=== PATIENT | female | born 1980 | race Caucasian/White ===

== ENCOUNTER 2020-03-18 09:46 | Day surgery (SDC) | payer OTHER ==
[~2020-03-18 09:46] MED LIST: Lactated Ringers 1,000 ML IV SCH
[2020-03-18] MEDS ORDERED: Succinylcholine/Sod PF 100 MG/5 ML SYRINGE IV ONE (10:09)
[2020-03-18] MEDS ORDERED: Ketorolac 30 MG/ML SDV ONE (10:09)
[2020-03-18] MEDS ORDERED: Rocuronium 100 MG/10 ML Syringe ONE (10:09)
[2020-03-18] MEDS ORDERED: fentaNYL 100 MCG/2 ML SDV ONE (10:10)
[2020-03-18] MEDS ORDERED: Midazolam 1 MG/ML 2 ML SDV ONE (10:10)
[2020-03-18] MEDS ORDERED: Propofol 200 MG/20 ML SDV ONE ×2 (10:10→11:33)
--- NOTE | 2020-03-18 10:16 | PCM.PREANE ---
Preanesthetic Assessment - Anesthesia/Transfusion/Family Hx Anesthesia History: Prior Anesthesia Without Reaction Other Type of Anesthesia Reaction Comment: "mother has allergy to novacaine" Family History of Anesthesia Reaction: No Transfusion History: No Prior Transfusion(s) Intubation History: Unknown - Review of Systems General: No Symptoms Pulmonary: No Symptoms Cardiovascular: No Symptoms Gastrointestinal: No Symptoms Neurological: No Symptoms Other: Reports: None - Physical Assessment NPO Status Date: 03/17/20 Height: 5 ft 5.75 in Weight: 94.801 kg ASA Class: 2 Mental Status: Alert & Oriented x3 Airway Class: Mallampati = 2 Dentition: Reports: Normal Dentition ROM/Head Extension: Full Lungs: Clear to Auscultation, Normal Respiratory Effort Cardiovascular: Regular Rate, Regular Rhythm - Lab Values: Laboratory Last Values Hgb 14.4 g/dL (12.0-16.0) 03/17/20 09:08 Hct 44.0 % (36.0-46.0) 03/17/20 09:08 HCG, Qual NEGATIVE (NEG) 03/17/20 09:08 - Allergies Allergies/Adverse Reactions: Allergies Allergy/AdvReac Type Severity Reaction Status Date / Time No Known Allergies Allergy Verified 03/12/20 10:31 - Blood Blood Available: No - Anesthesia Plan Pre-Op Medication Ordered: None - Acknowledgements Anesthesia Type Planned: General Anesthesia Pt an Appropriate Candidate for the Planned Anesthesia: Yes Pt/Guardian Understands and Agrees with Anesthesia Plan: Yes PreAnesthesia Questionnaire - Past Health History Medical/Surgical History: Denies Medical/Surgical History HEENT History: Reports: None Cardiovascular History: Reports: Hypertension Respiratory History: Reports: Sleep Apnea Other Respiratory History: uses CPAP Gastrointestinal History: Reports: Diverticulosis, GERD, Other (See Below) Other Gastrointestinal History: diverticulitis Genitourinary History: Reports: None BODY WORKER History: Reports: , Other (See Below) Other OB/BYN History: genital herpes Musculoskeletal History: Reports: Back Pain, Chronic Neurological History: Reports: Concussion Psychiatric History: Reports: ADHD, Anxiety, Depression Endocrine/Metabolic History: Reports: Diabetes, Gestational, Obesity/BMI 30+ Hematologic History: Reports: None Immunologic History: Reports: None Oncologic (Cancer) History: Reports: None Dermatologic History: Reports: None - Infectious Disease History Infectious Disease History: Reports: Chicken Pox - Past Surgical History Head Surgeries/Procedures: Reports: None HEENT Surgical History: Reports: Tonsillectomy Cardiovascular Surgical History: Reports: None Respiratory Surgical History: Reports: None GI Surgical History: Reports: Colonoscopy Female Surgical History: Reports: Cervical Cryotherapy, D&C, Other (See Below) Other Female Surgeries/Procedures: cerclage with x2, ESSURE Endocrine Surgical History: Reports: None Neurological Surgical History: Reports: None Other Musculoskeletal Surgeries/Procedures:: broken finger Oncologic Surgical History: Reports: None Dermatological Surgical History: Reports: None - SUBSTANCE USE Smoking Status *Q: Light Tobacco Smoker Tobacco Use Within Last Twelve Months: Cigarettes - HOME MEDS Home Medications: Home Meds Lisdexamfetamine Dimesylate [Vyvanse] 20 mg PO DAILY 04/16/18 [History] Metoprolol Tartrate 25 mg PO DAILY 06/23/18 [History] valACYclovir HCl [Valtrex] 500 mg PO DAILY 06/23/18 [History] Omeprazole/Sodium Bicarbonate [Zegerid OTC 20-1,100 MG] 1 tab PO ASDIRECTED PRN 03/12/20 [History] Vortioxetine Hydrobromide [Trintellix] 20 mg PO DAILY 03/12/20 [History] - CURRENT (IN HOUSE) MEDS Current Meds: Current Medications Lactated Ringer's (Ringers, Lactated) 1,000 mls @ 125 mls/hr IV ASDIRECTED BOBBY Discontinued Medications Fentanyl (Sublimaze) Confirm Administered Dose 100 mcg .ROUTE .STK-MED ONE Stop: 03/18/20 10:11 Ketorolac Tromethamine (Toradol) Confirm Administered Dose 30 mg .ROUTE .STK-MED ONE Stop: 03/18/20 10:10 Midazolam HCl (Versed 1 Mg/Ml) Confirm Administered Dose 2 mg .ROUTE .STK-MED ONE Stop: 03/18/20 10:11 Propofol (Diprivan 20 Ml) Confirm Administered Dose 200 mg .ROUTE .STK-MED ONE Stop: 03/18/20 10:11 Rocuronium [place] (Zemuron) Confirm Administered Dose 100 mg .ROUTE .STK-MED ONE Stop: 03/18/20 10:10
[2020-03-18] MEDS ORDERED: Lidocaine 1% with EPINEPHrine 1:100,000 20 ML MDV ONE (11:34)
--- NOTE | 2020-03-18 11:54 | PCM.OPNOTE ---
- General Post-Op/Procedure Note Date of Surgery/Procedure: 03/18/20 Operative Procedure(s): LEEP Findings: scarring peripherally on cervix from prior cerclage, entire transition zone identified with large area of acetowhite epithelium from 2 o'clock to 7 o'clock Pre Op Diagnosis: Moderate cervical dysplasia Post-Op Diagnosis: Same Anesthesia Technique: MAC, Other (see below) (cervical block) Primary Surgeon: Berna Caldwell Secondary Surgeon: Vickey Muir Anesthesia Provider: Stephen Willis Human Resource Professional: Madelyn Stapleton Pathology: ectocervical biopsy labelled at 12 o'clock. Endocervical biopsy labelled at 12 o'clock. Endocervical curettings. Fluid Replacement, Intraop: 1,000 EBL in mLs: 10 Complications: None Known Condition: Good
--- NOTE | 2020-03-18 12:25 | PCM.POSTAN ---
POST ANESTHESIA ASSESSMENT - MENTAL STATUS Mental Status: Alert, Oriented - VITAL SIGNS Vital Signs: Last Vital Signs Temp 96.8 F L 03/18/20 11:50 Pulse 71 03/18/20 12:11 Resp 19 03/18/20 12:11 BP 122/79 03/18/20 12:11 Pulse Ox 97 03/18/20 12:11 - RESPIRATORY Respiratory Status: Respiratory Rate WNL, Airway Patent, O2 Saturation Stable - CARDIOVASCULAR CV Status: Pulse Rate WNL, Blood Pressure Stable - GASTROINTESTINAL GI Status: No Symptoms - POST OP HYDRATION Hydration Status: Adequate & Stable
--- NOTE | 2020-03-18 12:26 | PCM48HPAN ---
Post Anesthesia Note - EVALUATION WITHIN 48HRS OF ANESTHETIC Vital Signs in Normal Range: Yes Patient Participated in Evaluation: Yes Respiratory Function Stable: Yes Airway Patent: Yes Cardiovascular Function Stable: Yes Hydration Status Stable: Yes Pain Control Satisfactory: Yes Nausea and Vomiting Control Satisfactory: Yes Mental Status Recovered: Yes Vital Signs: Last Vital Signs Temp 96.8 F L 03/18/20 11:50 Pulse 71 03/18/20 12:11 Resp 19 03/18/20 12:11 BP 122/79 03/18/20 12:11 Pulse Ox 97 03/18/20 12:11
--- NOTE | 2020-03-18 15:01 | OR ---
SURGEON: Berna Caldwell M.D. DATE OF PROCEDURE: 03/18/2020 PREOPERATIVE DIAGNOSIS: Moderate cervical dysplasia. POSTOPERATIVE DIAGNOSIS: Moderate cervical dysplasia. PROCEDURE: Loop electrode excisional procedure. PRIMARY SURGEON: Berna Caldwell MD SALT MINER: ANDREA Olvera ANESTHESIA: Monitored anesthetic care with cervical block. FLUIDS: 1000 mL of crystalloid. ESTIMATED BLOOD LOSS: 10 mL. FINDINGS: There was a prior trauma from cerclages noted on the ectocervix. The transition zone was easily visualized. There was a large area of acetowhite epithelium from 2 o'clock to 7 o'clock without any obvious vascular changes upon colposcopy after acetic acid was applied. Lugol's solution was then applied and the transition zone was easily identified. The time-out had been held prior to starting the procedure. A total of 10 mL of 1% lidocaine with epinephrine was injected at the 12, 5, and 7 o'clock position. A large loop electrode was then utilized to excise the ectocervix under a setting of 60 brown of power. A small square loop was then utilized for an endocervical component. ECC was then performed and collected with a Cytobrush. The base of the LEEP bed was then coagulated on pure coag, setting of 60, ball-tip cautery, and Monsel's solution was applied. All the instruments were removed from the vagina. Final sponge, needle, and instrument counts were reported as correct. There were no known complications. The patient was transferred to Recovery in good condition. PORTIA / KESHIA /[id number]
[2020-03-18 17:36] VITALS: BP 129/93; PULSE 64
== END 2020-03-18 13:20 | disposition home or self-care (01) ==
LOC: MW.SDS 09:46
PROVIDERS: ATTEND Obstetrics & Gynecology
DX: D06.0 Carcinoma in situ of endocervix (principal); I10 Essential (primary) hypertension; E11.9 Type 2 diabetes mellitus without complications; F41.9 Anxiety disorder, unspecified; F32.9 Major depressive disorder, single episode, unspecified; R87.810 Cervical high risk human papillomavirus (HPV) DNA test positive; E66.9 Obesity, unspecified; F17.210 Nicotine dependence, cigarettes, uncomplicated; Z79.899 Other long term (current) drug therapy
CPT/HCPCS: 36415; 57460; 84703; 85014; 85018; 88305; 88307; J0330; J1885; J2250; J2704; J3010; J7120

== ENCOUNTER 2024-04-03 07:56 | Day surgery (SDC) | payer OTHER ==
[~2024-04-03 07:56] MED LIST changes: -Lactated Ringers 1,000 ML IV SCH; +Sodium Chloride 0.9% 10 ML Syringe FLUSH PRN; +Sodium Chloride 0.9% 2.5 ML Syringe FLUSH PRN; +Sodium Chloride 0.9% 20 ML SDV IV PRN
[2024-04-03] MEDS: Lactated Ringers 1,000 ML IV SCH (08:40)
[2024-04-03] MEDS ORDERED: propofoL 50 ML ONE ×2 (09:01→09:53)
[2024-04-03] MEDS ORDERED: fentaNYL 100 MCG/2 ML SDV ONE (09:43)
[2024-04-03 11:41] VITALS: BP 104/64; PULSE 59
== END 2024-04-03 10:42 | disposition home or self-care (01) ==
LOC: MW.SDS 07:56
PROVIDERS: ATTEND Surgery
DX: Z12.11 Encounter for screening for malignant neoplasm of colon (principal); R19.5 Other fecal abnormalities; K57.30 Diverticulosis of large intestine without perforation or abscess without bleeding; K21.9 Gastro-esophageal reflux disease without esophagitis; I10 Essential (primary) hypertension; F41.9 Anxiety disorder, unspecified; G47.30 Sleep apnea, unspecified; F32.A Depression, unspecified; K80.20 Calculus of gallbladder without cholecystitis without obstruction; Z87.891 Personal history of nicotine dependence; Z79.899 Other long term (current) drug therapy
CPT/HCPCS: 45378; 81025; J2704; J3010; J7120

== ENCOUNTER 2024-10-05 12:30 | Emergency (ER) | payer OTHER ==
[2024-10-05 14:38] VITALS: BP 152/106; PULSE 67
== END 2024-10-05 14:37 | disposition home or self-care (01) ==
LOC: MW.ED 12:30
DX: M25.561 Pain in right knee (principal); I10 Essential (primary) hypertension; E66.9 Obesity, unspecified; Z79.899 Other long term (current) drug therapy; Z75.8 Other problems related to medical facilities and other health care; Z68.37 Body mass index [BMI] 37.0-37.9, adult
CPT/HCPCS: 93971-26-RT; 93971-RT; 99283